=== PATIENT | male | born 1980 | race Caucasian/White ===

== ENCOUNTER 2017-03-15 11:45 | Emergency (ER) | END 2017-03-15 22:50 | disposition home or self-care (01) ==

== ENCOUNTER 2018-11-15 18:46 | Emergency (ER) | payer MEDICAID ==
[~2018-11-15] VITALS: Ht 165.1 cm; Wt 74.9 kg
[~2018-11-15 18:46] MED LIST: IBUP-1542 PO; LORA1TAB PO; MECL-77 PO; ONDA4TAB14 PO; ONDA8TAB14 PO
[2018-11-15 19:13] VITALS: Ht 165.1 cm; Wt 74.9 kg
[2018-11-15] MEDS ORDERED: ONDANSETRON (ODT) 4 MG TAB ODT STA (20:22)
[2018-11-15] MEDS ORDERED: IBUPROFEN 600 MG TAB PO ONE (20:30)
[2018-11-15] MEDS ORDERED: MECLIZINE 12.5 MG TAB PO ONE (20:30)
[2018-11-15 21:19] VITALS: BP 128/77; PULSE 72; RESP 16
== END 2018-11-15 21:19 | disposition home or self-care (01) ==
LOC: FTE 18:46
DX: H92.01 Otalgia, right ear (principal); R42 Dizziness and giddiness
CPT/HCPCS: 70450; 70480; Z7502; Z7610